=== PATIENT | male | born 1945 | race Caucasian/White ===

== ENCOUNTER → 2024-01-15 | Outpatient (CLI) | payer OTHER ==
[2024-01-15 12:26] LABS: BASOPHILS ABSOLUTE AUTO 0.06 K/mm3 (0.00-0.23); BASOPHILS PERCENT AUTO 1 % (0-2); EOSINOPHILS PERCENT AUTO 2 % (0-6); Hematocrit 51.2 % (37.0-53.0); Hemoglobin 16.8 g/dL (13.5-17.5); IMMATURE GRAN ABSOLUTE AUTO 0.06 K/mm3 (0.00-0.10); IMMATURE GRAN PERCENT AUTO 1 % (0-1); LYMPHOCYTES ABSOLUTE AUTO 1.11 K/mm3 (0.84-5.20); LYMPHOCYTES PERCENT AUTO 10 % (21-46); MONOCYTES ABSOLUTE AUTO 0.92 K/mm3 (0.16-1.47); MONOCYTES PERCENT AUTO 8 % (4-13); Mean Corpuscular HGB 29.3 pg (26.0-34.0); Mean Corpuscular HGB Conc 32.8 g/dL (31.5-36.5); Mean Corpuscular Volume 89 fL (80-100); Mean Platelet Volume 9.9 fL (9.1-12.4); NEUTROPHILS ABSOLUTE AUTO 8.79 K/mm3 (1.96-9.15); NEUTROPHILS PERCENT AUTO 79 % (41-73); Platelet Count 243 K/mm3 (150-400); RDW Coefficient Variation 14.6 % (11.7-14.2); RDW Standard Deviation 46.8 fL (35.1-46.3); Red Blood Cell Count 5.74 M/mm3 (4.30-5.90); White Blood Cell Count 11.14 K/mm3 (4.00-11.30)
[2024-01-15 12:38] LABS: Albumin, Blood 3.8 g/dL (3.4-5.0); Bilirubin, Total 0.6 mg/dL (0.1-1.0); Bun/Creatinine Ratio 21.2 (12.0-20.0); Calcium, Blood 12.5 mg/dL (8.5-10.1); Creatinine, Blood 1.7 mg/dL (0.60-1.20); Globulin, Blood 3.7 g/dL (2.2-4.0); Total Protein, Blood 7.5 g/dL (6.4-8.2)
== END ==
LOC: LAB SHORT 12:21 → LAB 12:21
PROVIDERS: Chiropractor
DX: R06.00 Dyspnea, unspecified (principal); E83.52 Hypercalcemia
CPT/HCPCS: 80053; 82306; 82330; 83970; 84484; 85025

== ENCOUNTER 2024-04-24 14:34 | Observation (INO) | payer OTHER ==
[~2024-04-24] VITALS: Ht 172.7 cm; Wt 75.2 kg
[2024-04-24 15:07] LABS: BASOPHILS ABSOLUTE AUTO 0.06 K/mm3 (0.00-0.23); BASOPHILS PERCENT AUTO 1 % (0-2); EOSINOPHILS ABSOLUTE AUTO 0.11 K/mm3 (0.00-0.68); EOSINOPHILS PERCENT AUTO 1 % (0-6); Hematocrit 45.8 % (37.0-53.0); Hemoglobin 14.7 g/dL (13.5-17.5); IMMATURE GRAN ABSOLUTE AUTO 0.05 K/mm3 (0.00-0.10); IMMATURE GRAN PERCENT AUTO 1 % (0-1); LYMPHOCYTES ABSOLUTE AUTO 0.75 K/mm3 (0.84-5.20); LYMPHOCYTES PERCENT AUTO 8 % (21-46); MONOCYTES PERCENT AUTO 6 % (4-13); Mean Corpuscular HGB 28.2 pg (26.0-34.0); Mean Corpuscular HGB Conc 32.1 g/dL (31.5-36.5); Mean Corpuscular Volume 88 fL (80-100); NEUTROPHILS PERCENT AUTO 84 % (41-73); Platelet Count 232 K/mm3 (150-400); RDW Coefficient Variation 14.2 % (11.7-14.2); RDW Standard Deviation 45.8 fL (35.1-46.3); Red Blood Cell Count 5.21 M/mm3 (4.30-5.90); White Blood Cell Count 9.87 K/mm3 (4.00-11.30)
[2024-04-24 15:28] LABS: Albumin, Blood 3.7 g/dL (3.4-5.0); Bilirubin, Total 0.5 mg/dL (0.1-1.0); Bun/Creatinine Ratio 14.5 (12.0-20.0); Calcium, Blood 9.1 mg/dL (8.5-10.1); Creatinine, Blood 2.07 mg/dL (0.60-1.20); Globulin, Blood 3.6 g/dL (2.2-4.0); Magnesium, Blood 1.9 mg/dL (1.6-2.4); Potassium, Blood 5.7 mmol/L (3.5-5.5); Total Protein, Blood 7.3 g/dL (6.4-8.2)
[2024-04-24 15:45] LABS: Source, Urine Clean Catch
[2024-04-24 15:59] LABS: Appearance, Urine Clear (Clear); Bilirubin, Urine Neg (Neg); Blood, Urine 4+ (Neg); Color, Urine Yellow (P-Yellow); Glucose Qualitative, Urine Neg (Neg); Ketones, Urine Neg (Neg); Leukocyte Esterase, Urine Neg (Neg); Nitrite, Urine Neg (Neg); Protein, Urine 2+ (Neg); Specific Gravity, Urine 1.005 (1.003-1.022); Urobilinogen, Urine NORM (Normal)
[2024-04-24 16:12] LABS: Bacteria Few /hpf; Squamous Epithelial Cells Rare /hpf (Few)
[2024-04-25] MEDS ORDERED: Ondansetron HCl 2 MG / ML 2ML Vial IV PRN (00:05)
[2024-04-25] MEDS ORDERED: Atropine Sulfate 1% Opth Soln 2ML BTL SL PRN (00:05)
[2024-04-25] MEDS ORDERED: FLU VACC TS2024-25(6MOS UP)/PF 45 MCG/0.5 ML SYRINGE IM ONE (00:05)
[2024-04-25] MEDS ORDERED: FentaNYL Citrate 50 MCG/ML 2 ML Injection IV PRN (00:05)
[2024-04-25 01:00] VITALS: BP 118/88
[2024-04-25 01:23] LABS: International Normalized Ratio 1.02; Prothrombin Time Results 10.9 Sec (9.7-11.5)
[2024-04-25 01:41] LABS: Free Thyroxine 1.68 ng/dL (0.70-1.60); Thyroid Stimulating Hormone <0.005 uIU/mL (0.360-4.800)
[2024-04-25] MEDS ORDERED: LORazepam 1 MG Tab PO PRN (11:25)
[2024-04-25] MEDS ORDERED: LORazepam 2 MG/ML 1ML Injection IV PRN (11:25)
[2024-04-25] MEDS ORDERED: Morphine Sulfate 20 MG/1ML 1 ML Oral Syringe SL PRN (11:25)
[2024-04-25] MEDS ORDERED: SYNTHROID150 MC1 PO (13:04)
[2024-04-25] MEDS ORDERED: Ventolin5 MG/1 ML INH (13:05)
[2024-04-25] MEDS ORDERED: ARFORMOTER15 MCG/2 M INH (13:07)
[2024-04-25] MEDS ORDERED: IPRATROPIUM BR (13:09)
[2024-04-25] MEDS ORDERED: Prinivil10 MG PO (13:09)
[2024-04-25] MEDS ORDERED: METFORMIN HCL500 M2 PO (13:11)
[2024-04-25] MEDS ORDERED: OXYC5 PO (13:12)
[2024-04-25] MEDS ORDERED: DONEPEZIL HCL10 M1 PO (13:12)
[2024-04-25] MEDS ORDERED: Simvastatin20 MG PO (13:12)
[2024-04-25] MEDS ORDERED: TAMSULOSIN HCL0.4 M1 PO (13:12)
--- NOTE | 2024-04-25 13:23 | NUR ---
Pt's brother and sister in law were present at bedside this morning. Pt breathing slightly labored, he was unable to answer any questions when we met today. Pt had stroke at home and in ED. 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 Family want to take pt home with hospice. This is appropriate. Orders placed. Pt will return home when hospice in place. ED foster care social worker placing the referral. Comfort meds ordered.
--- NOTE | 2024-04-25 18:41 | NUR ---
ADMIT PATIENT ADMITTED FROM ER AT APPROX 1420. PATIENT HAS VERY SLURRED SPEECH. PATIENT IS A&OX2. PATIENT CHANGED UPON ARRIVAL. PATIENT SATURATED UPON ARRIVAL. PATIENT DENIES PAIN. PATIENT HAS COMFORT CARE ORDERS. PER CARE MANAGEMENT, PATIENT TO DISCHARGE TOMORROW ON HOSPICE.
--- NOTE | 2024-04-25 18:43 | NUR ---
FALL PATIENT FOUND ON KNEES NEXT TO BED AT 1840. PATIENT HELPED BACK INTO BED. VITALS WNL. NO NEW SKIN ISSUES NOTED. BED ALARM WAS GOING OFF. PATIENT STATED HE WAS THIRSTY. NOTIFIED.
--- NOTE | 2024-04-25 19:47 | NUR ---
RECEIVED REPORT FROM DAYSMARIANNE RN. WILL CONTINUE TO PROVIDE CARE T/O SHIFT. CALL LT IN REACH.
--- NOTE | 2024-04-25 19:48 | NUR ---
PT TOLERATED THICKENED WATER WITH SMALL SPOONFULS. NO CHOKING OR COUGHING NOTED. PT HARD TO UNDERSTAND. STATES HE HAS A HARD TIME SWALLOWING SINCE HE HAS NO TEETH, SAID HE DIDN'T TAKE CARE OF HIS TEETH AND NOW IT'S HARD TO SWALLOW. WROTE ON WHITEBOARD TO GIVE THICKENED LIQUIDS VIA SPOONFULS. WILL CONTINUE TO PROVIDE CARE. BED ALARM ON. CALL LT IN REACH.
--- NOTE | 2024-04-25 21:11 | NUR ---
GAVE PT SOME THICKENED APPLE JUICE IN A SIPPY CUP. PT DID WELL. CALL LT IN REACH. BED ALARM ON.
[2024-04-25] MEDS ORDERED: LEVSOD137 PO (21:59)
--- NOTE | 2024-04-25 22:22 | NUR ---
PT DENIES PAIN AT THIS TIME. WATCHING TV. NO NEEDS. CALL LT IN REACH. BED ALARM ON.
--- NOTE | 2024-04-25 23:00 | NUR ---
PT REFUSED TO BE REPOSITIONED WITH PILLOWS, STATES HE MOVES AROUND TOO MUCH WHEN HE SLEEPS. BED ALARM ON. CALL LT IN REACH.
[2024-04-25] MEDS ORDERED: BUDESONIDE-FO10.2 G2 INH (23:08)
[2024-04-25] MEDS ORDERED: IPRATROPIUM BR INH (23:13)
--- NOTE | 2024-04-25 23:59 | NUR ---
PT RESTING. SNORING. BED ALARM ON. CALL LT IN REACH.
--- NOTE | 2024-04-26 00:41 | NUR ---
PT COUGHING STATES HIS THROAT IS DRY, GAVE SOME NECTAR THICKENED WATER TO PT WITH HOB HIGH. NO OTHER NEEDS. CALL LT IN REACH. BED ALARM ON.
--- NOTE | 2024-04-26 01:51 | NUR ---
PT RESTING, SNORING. BED ALARM ON. CALL LT IN REACH.
--- NOTE | 2024-04-26 02:56 | NUR ---
PT CONTINUES TO REST QUIETLY. CALL LT IN REACH. BED ALARM ON.
--- NOTE | 2024-04-26 05:48 | NUR ---
SHIFT SUMMARY: PT ABLE TO STATE NEEDS APPROPRIATELY. DENIED PAIN T/O SHIFT. STATES THE ONLY TIME HE'S IN PAIN WHEN HE'S UP WALKING. ON RA. NO COMPLAINTS OF SOB. DECLINED PILLOWS PLACED FOR REPOSITIONING, STATES HE MOVES AROUND TOO MUCH IN BED AND THEY WOULD GET IN THE WAY. TOLERATED NECTAR THICK LIQUIDS IN SIPPY CUP. THICKENED LIQUID GIVEN D/T PER DAYSHIFT PT WAS COUGHING ON THIN LIQUIDS IN A CUP WITH STRAW. NO COUGHING WITH NECTAR THICK LIQUIDS. PT ABLE TO FEED SELF INDEPENDENTLY. HARD TO UNDERSTAND AT TIMES D/T PT HAS NO TEETH. NO ACUTE CHANGES. WILL CONTINUE TO PROVIDE CARE UNTIL SHIFT REPORT TO ONCOMING NURSE. BED ALARM ON. CALL LT IN REACH.
--- NOTE | 2024-04-26 06:20 | NUR ---
ADJUSTED PT'S HOB FOR COMFORT. CALL LT IN REACH. BED ALARM ON.
[2024-04-26] MEDS ORDERED: ATROPINE SULFATE2 M1 SL (10:56)
--- NOTE | 2024-04-26 12:17 | NUR ---
DISCHARGE PT DISCHARGE TO HOME HOSPICE BY EMS TRANPORTATION. PT WAS CONFUSED, THIS RN MEDICATED WITH ATROPINE AND ATIVAN PO BEFORE DISCHARGE. PT HAD BELONGINGS IN HAND WITH DISCHARBE PAPERWORK.
== END 2024-04-26 12:16 | disposition hospice, home (50) ==
LOC: ER 14:34 → ERHOLD 14:35 → MEDS 04-25 14:30
PROVIDERS: Physician Assistant; Student in an Organized Health Care Education/Training Program; ADMIT Student in an Organized Health Care Education/Training Program
DX: S06.30AA Unspecified focal traumatic brain injury with loss of consciousness status unknown, initial encounter (principal); W19.XXXA Unspecified fall, initial encounter; C64.9 Malignant neoplasm of unspecified kidney, except renal pelvis; C79.9 Secondary malignant neoplasm of unspecified site; E78.5 Hyperlipidemia, unspecified; I12.9 Hypertensive chronic kidney disease with stage 1 through stage 4 chronic kidney disease, or unspecified chronic kidney disease; E11.22 Type 2 diabetes mellitus with diabetic chronic kidney disease; N18.9 Chronic kidney disease, unspecified; J44.9 Chronic obstructive pulmonary disease, unspecified; M85.80 Other specified disorders of bone density and structure, unspecified site; F20.9 Schizophrenia, unspecified; F03.90 Unspecified dementia, unspecified severity, without behavioral disturbance, psychotic disturbance, mood disturbance, and anxiety; Z87.891 Personal history of nicotine dependence; Z88.5 Allergy status to narcotic agent; Z88.6 Allergy status to analgesic agent; Z86.73 Personal history of transient ischemic attack (TIA), and cerebral infarction without residual deficits
CPT/HCPCS: 51702; 70450; 71045; 80053; 81001; 83735; 84439; 84443; 84484; 85025; 85610; 85730; 93005; 93010; 96374; 96375; 96376; 99285-25; A9270; G0378; J2060; J3010